=== PATIENT | male | born 1975 | race Caucasian/White ===

== ENCOUNTER 2021-04-19 21:10 | Emergency (ER) | payer OTHER ==
[~2021-04-19] VITALS: Ht 182.9 cm; Wt 95.3 kg
[2021-04-19] MEDS ORDERED: KEFLEX250 MG PO (22:05)
[2021-04-19] MEDS ORDERED: BACTRIM DS TAB1 EAC1 PO (22:05)
[2021-04-19 22:13] VITALS: BP 144/81
== END 2021-04-19 22:14 | disposition home or self-care (01) ==
LOC: M.ERS 21:10
DX: L03.113 Cellulitis of right upper limb (principal); E11.9 Type 2 diabetes mellitus without complications; M19.90 Unspecified osteoarthritis, unspecified site; Z90.49 Acquired absence of other specified parts of digestive tract